=== PATIENT | female | born 1995 | race Hispanic/Latino ===

== ENCOUNTER 2020-07-09 20:00 | Emergency (ER) | payer BC ==
[2020-07-09] MEDS ORDERED: CEFTRIAXONE SODIUM 1 GM ONE (20:56)
[2020-07-09] MEDS ORDERED: AZITHROMYCIN 250 MG TABLET PO ONE (20:57)
[2020-07-09] MEDS ORDERED: LIDOCAINE HCL-MPF 1% 2ML VIAL ONE (20:57)
[2020-07-09 21:01] LABS: APPEARANCE,URINE SL CLOUDY (CLEAR); BILIRUBIN,URINE NEGATIVE (NEGATIVE); COLOR,URINE YELLOW (YELLOW); GLUCOSE, URINE (UA) NEGATIVE (NEGATIVE); KETONES,URINE NEGATIVE (NEGATIVE); LEUKOCYTE ESTERASE ,URINE SMALL (NEGATIVE); NITRATE,URINE NEGATIVE (NEGATIVE); OCCULT BLOOD,URINE TRACE-INTACT (NEGATIVE); PROTEIN,URINE NEGATIVE (NEGATIVE); UROBILINOGEN,URINE 0.2 mg/dL (0.2-1.0)
[2020-07-09 21:29] LABS: BACTERIA,URINE Rare /HPF (None Seen); SQUAMOUS EPITHELIAL CELL,UR Moderate /HPF (0-2)
[2020-07-14 02:08] LABS: CHLAMYDIA DNA N.A.AMPLIFY Negative (Negative)
== END 2020-07-09 21:36 | disposition home or self-care (01) ==
LOC: EDH 20:00
DX: N75.0 Cyst of Bartholin's gland (principal)
CPT/HCPCS: 81001; 81025; 87486; 87797; 96372; 99284; J0696; J3490